=== PATIENT | female | born 2000 | race Caucasian/White ===

== ENCOUNTER 2023-11-11 13:15 | Emergency (ER) | payer BC ==
[2023-11-11] MEDS: Ketorolac 60 MG/2 ML SDV IM ONE (15:23)
[2023-11-11] MEDS: Acetaminophen/HYDROcodone 325-5 MG Tab PO ONE (17:42)
== END 2023-11-11 17:43 | disposition home or self-care (01) ==
LOC: JD.ED 13:15
DX: S49.91XA Unspecified injury of right shoulder and upper arm, initial encounter (principal); Z88.0 Allergy status to penicillin; W01.0XXA Fall on same level from slipping, tripping and stumbling without subsequent striking against object, initial encounter; Y92.39 Other specified sports and athletic area as the place of occurrence of the external cause
CPT/HCPCS: 73000; 73200; 96372; 99283; A9270; J1885